=== PATIENT | male | born 1995 | race Caucasian/White ===

== ENCOUNTER → 2017-07-25 | Outpatient (CLI) | payer OTHER ==
[~2017-07-25] MED LIST: PROHANCE 279.3MG/ML 15ML VIAL (A9576) As Ordered ONE; PROHANCE 279.3MG/ML 5ML VIAL (A9576) As Ordered ONE
--- NOTE | 2017-07-25 16:33 | REP ---
MRI right posterior chest wall and para-thoracic region without and with IV gadolinium: History: 22-year-old male with a 10-month history of painful gradually enlarging mass in the right side of the back. No prior imaging of directly available. Not typical lipoma by report of outside ultrasound. Gadolinium enhancement dose: 17 ml of intravenous ProHance. MR technique: Axial, coronal and sagittal imaging planes are utilized. T1 and T2-weighted scans were obtained with and without fat saturation. Post-gadolinium enhanced T1-weighted fat sat imaging is acquired in all three planes. MRI findings: There is a large lobulated mixed signal intensity mass primarily located in the dorsal paraspinal musculature of the lower thoracic and mid thoracic spine. The most cranial extent of the lesion is at the T7 vertebral body and the most caudal extent of the lesion is at the L1 vertebral body. This represents a craniocaudal span of 18-20 cm. In cross-section, the lesion has a maximum right to left dimension of 5.9 cm by a maximum anteroposterior dimension of 3.6 cm. The lesion is predominantly isointense with skeletal muscle on unenhanced T1-weighted scans. It is heterogeneously hyperintense on T2-weighted scans. There are low T1 and low T2 signal intensity septations throughout the lesion and low T1, low T2 signal intensity is seen around its periphery. There is mild adjacent mild fascial edema although this is subtle. There are two small extensions of the lesion, which go anteriorly through the posterior intercostal spaces to produce subpleural masses in the right chest. These are seen at the intercostal space between T7 and T8 and between T8 and T9. The subpleural tumor deposits measured 1.3 and 2.0 cm in greatest dimension respectively. There is no evidence of intraspinal involvement. No pleural effusion is seen. No rib destruction is seen. Cortical and medullary bone signal intensity appears normal. The lesion does not appear to extend into the subcutaneous fat. On postcontrast examination, there is heterogeneous moderate enhancement within the lesion and in the surrounding mild fascial soft tissues. No visualized retrocrural or obvious upper abdominal adenopathy is seen. I cannot see mediastinal structures very well with this protocol. There are mild degenerative disc changes in the mid thoracic spine at T6-7, T7-8, T10-11 and T11-12. The conus medullaris is normal in position and appearance at L1. No thoracic cord compressive lesion is seen. No neural foraminal lesion is seen. 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 Differential possibilities include rhabdomyosarcoma, lymphoma, synovial sarcoma. Signed by Guru Carrillo MD 07/25/2017 07:22 P
== END ==
LOC: M RAD 14:06 → EDSEX 14:30
PROVIDERS: ATTEND Surgery
DX: R22.2 Localized swelling, mass and lump, trunk (principal)

== ENCOUNTER 2017-09-13 22:26 | Emergency (ER) | payer OTHER ==
[~2017-09-13] VITALS: Ht 175.3 cm; Wt 88.6 kg
[2017-09-13] MEDS ORDERED: CELE1CAP4 PO (22:38)
[2017-09-13] MEDS ORDERED: OLAN5TAB PO (22:38)
[2017-09-13] MEDS ORDERED: OXYC-141 PO (22:38)
[2017-09-13] MEDS ORDERED: SULFAMETHOXAZOLE-TMP PO (22:38)
[2017-09-13] MEDS ORDERED: LIDO2.5C15 TOP (22:38)
[2017-09-13] MEDS ORDERED: ONDA8TAB7 PO (22:38)
[2017-09-13] MEDS ORDERED: OXYC1TAB23 PO (22:38)
[2017-09-13] MEDS ORDERED: MORPHINE 4 MG/ML 1ML SYRINGE IV ONE (23:15)
[2017-09-13] MEDS ORDERED: NS 500 ML IV ONE (23:15)
[2017-09-13 23:28] LABS: MEAN CORPUSCULAR HEMOGLOBIN 32.8 pg (27.0-33.0); PLATELET COUNT, AUTOMATED 105 10^3/uL (150-450); RED CELL DISTRIBUTION WIDTH 11.5 % (11.5-14.5)
[2017-09-13 23:31] LABS: ADD MANUAL DIFFER YES; DIFF SLIDE NUMBER 192; LEFT SHIFT POS FLAG; POS COUNT POS FLAG; POSITIVE MORPH POS FLAG; WBC SCAT POS FLAG
[2017-09-13 23:38] LABS: INR 1.01
[2017-09-13] MEDS ORDERED: HYDROmorphone HCL 1 MG/ML SYRINGE (J1170) IV ONE (23:45)
[2017-09-13 23:53] LABS: ANION GAP 7 MEQ/L (8-16); BLOOD UREA NITROGEN 21 MG/DL (7-18); CALCIUM LEVEL 9.1 MG/DL (8.5-10.1); CARBON DIOXIDE LEVEL 31 MEQ/L (21-32); CHLORIDE LEVEL 100 MEQ/L (98-107); GLOMERULAR FILTRATION RATE > 60.0 (>60); GLUCOSE, FASTING 105 MG/DL (70-105); POTASSIUM SERUM 3.7 MEQ/L (3.5-5.1); SODIUM LEVEL 138 MEQ/L (136-145)
[2017-09-13 23:57] LABS: EOSINOPHILS 1 % (0-5)
[2017-09-13 23:58] LABS: TOXIC VACUOLATION 3+
[2017-09-13 23:59] LABS: DOHLE BODIES 1+
[2017-09-14] MEDS ORDERED: KETOROLAC 30 MG/ML VIAL (J1885) IV ONE
--- NOTE | 2017-09-14 01:30 | REPUSA ---
HISTORY: Pain. COMPARISON: TECHNIQUE: Multiple thin-section contiguous helically-acquired axially-displayed computed tomographic images of the lumbar spine are obtained from T12 through S1, with images reviewed at soft tissue and bone window. 2D Sagittal and coronal reformatted images are performed. FINDINGS: There is normal lumbosacral vertebral body height and alignment on this supine, non-weight bearing ex am. Vertebral body mineralization is normal. All of the intervertebral disc spaces have normal height and contour. There is no herniated nucleus p ulposus, canal or foraminal stenosis. No paraspinal masses or collections. IMPRESSION: Normal CT of the lumbar spine. Thank you for your kind referral of this patient.
[2017-09-14] MEDS ORDERED: ISOVUE-370 76% 100ML VIAL (Q9967) As Ordered ONE (02:21)
--- NOTE | 2017-09-14 04:00 | REPUSA ---
CLINICAL HISTORY: Abdominal pain. TECHNIQUE: Multiple axial, sagittal and coronal CT images were obtained through the abdomen and pelvi s after administration of oral and intravenous contrast material. Images were obtained before and aft er IV contrast administration. COMMENTS: Moderate amount of fecal residue in the large bowels. The liver is of uniform attenuation without mass or defect. There is no intra or extrahepatic biliary ductal dilatation. The spleen is normal. The gallbladder is within normal limits. The pancreas is of normal contour and attenuation characteristics. There is no evidence of adrenal mass. Both kidneys demonstrate prompt and equal nephrograms. The kidneys are normal in size, shape and conf iguration. There is no evidence of renal or ureteral mass. No renal or ureteral calculi are identifie d. There is no hydroureter or hydronephrosis. No evidence for appendicitis. There is no bowel wall thickening. No evidence for small or large jeni l obstruction. There is no evidence of abdominal ascites or lymphadenopathy. There is no evidence of intrinsic or extrinsic bladder mass. There is no pelvic ascites or lymphadeno judy. Images of the lung bases show no evidence of pleural or parenchymal mass. There are no pleural effusi ons. Bilateral basilar noncalcified pulmonary nodules with the largest measuring 5 mm. The bony structures are free of lytic or blastic lesions. IMPRESSION: Moderate amount of fecal residue in the large bowels. No evidence of acute abdominal or pelvic pathology. Thank you for your kind referral of this patient.
[2017-09-14] MEDS ORDERED: HYDROmorphone HCL 1 MG/ML SYRINGE (J1170) IV ONE (05:15)
[2017-09-14 07:03] VITALS: BP 95/54
== END 2017-09-14 07:11 | disposition short-term general hospital (02) ==
LOC: M ED 22:26
DX: M54.5 Low back pain (principal); Z85.830 Personal history of malignant neoplasm of bone
CPT/HCPCS: 72131; 74177; 80048; 85025; 85610; 85730; 96374; 96375; 96376; 99285; J1170; J1885; Q9967

== ENCOUNTER 2017-10-21 20:11 | Emergency (ER) | payer OTHER ==
[2017-10-21 21:53] LABS: HEMATOCRIT 23.3 % (42.0-52.0); HEMOGLOBIN 8.1 g/dl (14.0-18.0); MEAN CORPUSCULAR HEMOGLOBIN 32.5 pg (27.0-33.0); MEAN CORPUSCULAR HGB CONC 34.8 g/dl (32.0-36.5); MEAN CORPUSCULAR VOLUME 93.6 fl (80.0-96.0); RED BLOOD COUNT 2.49 10^6/uL (4.30-6.10); RED CELL DISTRIBUTION WIDTH 13.1 % (11.5-14.5)
[2017-10-21 22:11] LABS: LACTIC ACID SEPSIS PROTOCOL 0.9 MMOL/L (0.4-2.0)
[2017-10-21 22:11] LABS: ALBUMIN 3.5 GM/DL (3.2-5.2); ALBUMIN/GLOBULIN RATIO 1.09 (1.00-1.93); ALKALINE PHOSPHATASE 104 U/L (45-117); ALT/SGPT 96 U/L (12-78); ANION GAP 5 MEQ/L (8-16); AST/SGOT 37 U/L (7-37); BILIRUBIN,DIRECT 1.8 MG/DL (0.0-0.2); BILIRUBIN,TOTAL 3.3 MG/DL (0.2-1.0); BLOOD UREA NITROGEN 21 MG/DL (7-18); CALCIUM LEVEL 8.4 MG/DL (8.5-10.1); CARBON DIOXIDE LEVEL 30 MEQ/L (21-32); CHLORIDE LEVEL 101 MEQ/L (98-107); CREATININE FOR GFR 0.81 MG/DL (0.70-1.30); GLOMERULAR FILTRATION RATE > 60.0 (>60); GLUCOSE, FASTING 105 MG/DL (70-105); POTASSIUM SERUM 4.1 MEQ/L (3.5-5.1); SODIUM LEVEL 136 MEQ/L (136-145); TOTAL PROTEIN 6.7 GM/DL (6.4-8.2)
[2017-10-21] MEDS: NS 1,000 ML IV (22:15)
[2017-10-21 22:17] LABS: PLATELET COUNT, AUTOMATED 69 10^3/uL (150-450); POS COUNT POS FLAG; POSITIVE DIFF POS FLAG; POSITIVE MORPH POS FLAG; WHITE BLOOD COUNT 0.6 10^3/uL (4.0-10.0)
[2017-10-21 22:18] LABS: ADD MANUAL DIFFER YES; DIFF SLIDE NUMBER 351
[2017-10-21 22:22] LABS: ATYPICAL LYMPH 4 % (0-5); BASOPHILS 2 % (0-4); LYMPHOCYTES 72 % (16-52); MONOCYTES 8 % (0-8); NEUTROPHILS 14 % (35-75)
[2017-10-21 22:25] LABS: PLATELET ESTIMATE DECREASED (NORMAL)
[2017-10-21] MEDS: PIPERACILLIN/TAZOBACTAM SOD 3.375 GM in APPROPRIATE DILUENT 1 EA IV (22:30)
[2017-10-21 22:34] LABS: IMMATURE PLATELET FRACTION % 6.4 % (0.0-10.9)
[2017-10-21 22:37] LABS: KETONE, URINE AUTO RFX NEGATIVE (NEGATIVE); LEUKOCYTE ESTERASE UR AUTO RFX NEGATIVE (NEGATIVE); MUCUS, URINE RFX SMALL (NEGATIVE); NITRITE, URINE AUTO RFX NEGATIVE (NEGATIVE); RBC, URINE AUTO RFX 24 /HPF (0-3); SPECIFIC GRAVITY UR AUTO RFX 1.028 (1.002-1.035); SQUAM EPITHELIAL CELL UR AURFX 0 /HPF (0-6); WBC, URINE AUTO RFX 1 /HPF (0-3)
[2017-10-21] MEDS: VANCOMYCIN HCL 1,000 MG, VIAL MATE ADAPTER 1 EACH in D5W 250 ML IV (23:00)
== END 2017-10-22 03:00 | disposition short-term general hospital (02) ==
LOC: M ED 10-22 03:00
DX: D70.9 Neutropenia, unspecified (principal); C49.6 Malignant neoplasm of connective and soft tissue of trunk, unspecified; Z79.899 Other long term (current) drug therapy
CPT/HCPCS: J3370

== ENCOUNTER → 2018-11-25 | Outpatient (CLI) | payer OTHER ==
[~2018-11-25] MED LIST changes: +BACT800T5 PO; +CELE1CAP4 PO; +DOCU100C16 PO; +LIDO2.5C15 EXT; +LIDO2.5C15 TOP; +OLAN5TAB PO; +ONDA8TAB7 PO; +OXYC-141 PO; +OXYC10TA3 PO; +OXYC1TAB23 PO; -PROHANCE 279.3MG/ML 15ML VIAL (A9576) As Ordered ONE; -PROHANCE 279.3MG/ML 5ML VIAL (A9576) As Ordered ONE; +SULFAMETHOXAZOLE-TMP PO; +[UNRECOGNIZED DRUG - CODE] PO
--- NOTE | 2018-11-25 14:40 | PFTRPT ---
Height: 68.00 Inches Weight: 220.00 Lbs BSA: 2.13 Diagnosis: SOB DATE OF PROCEDURE: 11/25/2018 ORDERED BY: Owen Ward Spirometry: Study of excellent technical quality. Forced vital capacity reduced. FEV1 in proportion. Obstructive index is, therefore, normal. Flow Volume Loop: Expiratory limb of the flow volume loop does suggest a restrictive impairment. Lung Volumes: Total lung capacity reduced. Residual volume is in proportion. Diffusing Capacity: Diffusing capacity is reduced and does not correct for alveolar volume. Hemoglobin: No hemoglobin available for correction. Airway Mechanics: Airway resistance and conductance are normal. IMPRESSION: At least mild restrictive ventilatory impairment with concomitant diffusing capacity impairment. Please correlate clinically. MTDD
== END ==
LOC: M CARPUL 11:54
PROVIDERS: ATTEND Physician Assistant
DX: R06.02 Shortness of breath (principal)

== ENCOUNTER → 2019-05-11 | Outpatient (REF) | payer OTHER ==
[2019-05-11 10:41] LABS: SEMEN APPEARANCE OPAQUE (OPAQUE); SEMEN VISCOSITY LIQUID (LIQUID); SEMEN VOLUME 1.2 ML (2.0-5.0); SEMEN pH 8.5 (7.0-8.0)
[2019-05-11 10:42] LABS: SEMEN WBC <=1 M/ml (<=1 M/ml)
== END ==
LOC: M LAB REF 09:55
PROVIDERS: ATTEND Physician Assistant
DX: Z31.41 Encounter for fertility testing (principal); Z92.21 Personal history of antineoplastic chemotherapy